=== PATIENT | male | born 2000 | race Hispanic/Latino ===

== ENCOUNTER 2025-01-10 13:13 | Emergency (ER) | payer OTHER ==
[~2025-01-10] VITALS: Ht 170.2 cm; Wt 63.5 kg
[2025-01-10 13:34] VITALS: PULSE 68; RESP 16; TEMP 97.8; O2SAT 100
[2025-01-10] MEDS ORDERED: BACTRIM DS TAB1 EACH PO (13:48)
== END 2025-01-10 14:03 | disposition home or self-care (01) ==
LOC: ER 13:48
DX: S60.121A Contusion of right index finger with damage to nail, initial encounter (principal); W22.8XXA Striking against or struck by other objects, initial encounter; Y92.018 Other place in single-family (private) house as the place of occurrence of the external cause
CPT/HCPCS: 99283